=== PATIENT | female | born 1985 | race Two or more races ===

== ENCOUNTER 2023-05-08 20:41 | Emergency (ER) | payer MEDICAID, OTHER ==
[~2023-05-08] VITALS: Ht 170.2 cm; Wt 90.0 kg
[2023-05-08 20:41] VITALS: BP 124/82; PULSE 81; RESP 18; O2SAT 97
[2023-05-08 21:47] LABS: Urine Bacteria NONE SEEN /hpf (None Seen); Urine Blood Negative /uL (Negative); Urine Clarity Clear (Clear); Urine Color Yellow (Yellow); Urine Protein, UAD Negative (Negative); Urine Specific Gravity 1.024 (1.001-1.035); Urine WBC 1 /hpf (0 - 5); Urine pH 7.5 (5.0-8.0)
[2023-05-08] MEDS ORDERED: FLUC150T38 PO (22:14)
== END 2023-05-08 22:15 | disposition home or self-care (01) ==
LOC: ER 20:41
DX: B37.31 Acute candidiasis of vulva and vagina (principal)
CPT/HCPCS: 81001